=== PATIENT | female | born 1990 | race Caucasian/White ===

== ENCOUNTER 2017-11-16 23:35 | Emergency (ER) | payer OTHER ==
[~2017-11-16] VITALS: Ht 160 cm; Wt 65.4 kg
[~2017-11-16 23:35] MED LIST: Z.0.BCPILL PO
[2017-11-16 23:39] VITALS: BP 191/103; PULSE 82; RESP 18; TEMP 97.3; O2SAT 100
[2017-11-17 00:53] VITALS: BP 117/67
[2017-11-17] MEDS ORDERED: LORazepam 2 MG/ML VIAL IV PUSH ONE (01:00)
[2017-11-17] MEDS ORDERED: ONDANSETRON HCL 4 MG/2 ML VIAL IV PUSH ONE (01:00)
--- NOTE | 2017-11-17 01:08 | RADRPT ---
EXAM DATE/TIME: 11/17/2017 00:58 [place] COMPARISON: No previous studies available for comparison. INDICATIONS : Chest pain. MEDICAL HISTORY : None. SURGICAL HISTORY : None. ENCOUNTER: Initial ACUITY: 2 days PAIN SCORE: 0/10 LOCATION: Bilateral chest FINDINGS: A single view of the chest demonstrates the lungs to be symmetrically aerated without evidence of mas s, infiltrate or effusion. The cardiomediastinal contours are unremarkable. Osseous structures are intact. CONCLUSION: No acute disease. Yousuf Garcia MD on November 17, 2017 at 1:06 Board Certified Radiologist. This report was verified electronically.
--- NOTE | 2017-11-17 01:19 | PD ---
HPI Chief Complaint: Hypertension Time Seen by Provider: 00:54 Travel History International Travel<30 days: No Contact w/Intl Traveler<30days: No Traveled to known affect area: No History of Present Illness HPI 27-year-old female presents to the emergency department by private transportation for evaluation of anxiety and elevated blood pressure. 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 Patient states the past 3 days she has been very anxious has had increased stressors and has noted increased blood pressure. Today patient developed headache and nausea vomiting. Patient's no fall episodes of vomiting. Patient upon arrival to the emergency department noticed that her blood pressure is improving. Patient has been compliant with her antihypertensive. No blurred vision double vision loss of vision referred neck jaw back shoulder arm or abdominal pain no upper or lower extremity numbness tingling or weakness. Headache is mild to moderate not sudden onset not thunderclap and not worst ever. Patient has taken her blood pressure medication also takes Klonopin for anxiety but symptoms have persisted PFSH Past Medical History Narrative Medical Hypertension anxiety IUD; cholecystectomy; nursing notes reviewed Hypertension: Yes Seizures: Yes (one time ) Tetanus Vaccination: < 5 Years Influenza Vaccination: Yes ?: Not LMP: IUD : 0 Past Surgical History Cholecystectomy: Yes Social History Alcohol Use: Yes (OCCASIONAL) Tobacco Use: No Substance Use: No Allergies-Medications (Allergen,Severity, Reaction): Coded Allergies: No Known Allergies (Verified , 01/14/09) Reported Meds & Prescriptions Reported Meds & Active Scripts Active Reported Buspirone (Buspirone HCl) 15 Mg Tab 15 Mg PO BID Hydrochlorothiazide 12.5 Mg Tab 12.5 Mg PO DAILY Carvedilol 6.25 Mg Tab 6.25 Mg PO BID Oxcarbazepine 600 Mg Tab 600 Mg PO BID Klonopin (Clonazepam) 0.5 Mg Tab 0.5 Mg PO TID Review of Systems Except as stated in HPI: all other systems reviewed are Neg Physical Exam Narrative GENERAL: Well-developed well-nourished female no acute distress or respiratory distress SKIN: Warm and dry. HEAD: Normocephalic. EYES: No scleral icterus. No injection or drainage. NECK: Supple, trachea midline. No JVD or lymphadenopathy. CARDIOVASCULAR: Regular rate and rhythm without murmurs, gallops, or rubs. RESPIRATORY: Breath sounds equal bilaterally. No accessory muscle use. GASTROINTESTINAL: Abdomen soft, non-tender, nondistended. MUSCULOSKELETAL: No cyanosis, or edema. BACK: Nontender without obvious deformity. No CVA tenderness. Data Data Last Documented VS Vital Signs Date Time Temp Pulse Resp B/P (MAP) Pulse Ox O2 Delivery O2 Flow Rate FiO2 11/17/17 02:13 81 18 118/77 (91) 98 Room Air 11/16/17 23:39 97.3 Orders Orders Electrocardiogram (11/17/17 00:54) Basic Metabolic Panel (Bmp) (11/17/17 00:54) Ckmb (Isoenzyme) Profile (11/17/17 00:54) Complete Blood Count With Diff (11/17/17 00:54) Magnesium (Mg) (11/17/17 00:54) Prothrombin Time / Inr (Pt) (11/17/17 00:54) Act Partial Throm Time (Ptt) (11/17/17 00:54) Troponin I (11/17/17 00:54) Ecg Monitoring (11/17/17 00:54) Bilateral Bp Monitoring (11/17/17 00:54) Iv Access Insert/Monitor (11/17/17 00:54) Oximetry (11/17/17 00:54) Oxygen Administration (11/17/17 00:54) Lorazepam Inj (Ativan Inj) (11/17/17 01:00) Ed Urine Pregnancytest Poc (11/17/17 00:54) Chest, Single Ap (11/17/17 ) Ondansetron Inj (Zofran Inj) (11/17/17 01:00) Urinalysis - C+S If Indicated (11/17/17 00:54) Ed Discharge Order (11/17/17 02:09) Labs Laboratory Tests Test 11/17/17 01:00 White Blood Count 9.8 TH/MM3 Red Blood Count 4.76 MIL/MM3 Hemoglobin 14.2 GM/DL Hematocrit 41.3 % Mean Corpuscular Volume 86.9 FL Mean Corpuscular Hemoglobin 29.8 PG Mean Corpuscular Hemoglobin Concent 34.2 % Red Cell Distribution Width 11.0 % Platelet Count 253 TH/MM3 Mean Platelet Volume 7.2 FL Neutrophils (%) (Auto) 90.4 % Lymphocytes (%) (Auto) 4.0 % Monocytes (%) (Auto) 4.5 % Eosinophils (%) (Auto) 0.9 % Basophils (%) (Auto) 0.2 % Neutrophils # (Auto) 8.9 TH/MM3 Lymphocytes # (Auto) 0.4 TH/MM3 Monocytes # (Auto) 0.4 TH/MM3 Eosinophils # (Auto) 0.1 TH/MM3 Basophils # (Auto) 0.0 TH/MM3 CBC Comment DIFF FINAL Differential Comment Prothrombin Time 12.0 SEC Prothromb Time International Ratio 1.2 RATIO Activated Partial Thromboplast Time 34.2 SEC Urine Collection Type CLEAN CATCH Urine Color YELLOW Urine Turbidity CLEAR Urine pH 8.0 Urine Specific [place] 1.015 Urine Protein 30 mg/dL Urine Glucose (UA) NEG mg/dL Urine Ketones NEG mg/dL Urine Occult Blood NEG Urine Nitrite NEG Urine Bilirubin NEG Urine Urobilinogen 0.2 MG/DL Urine Leukocyte Esterase NEG Urine RBC 0-3 /hpf Urine WBC 0-2 /hpf Urine Squamous Epithelial Cells 0-5 /hpf Urine Bacteria OCC /hpf Urine Hyaline Casts 0-2 /lpf Urine Mucus OCC /lpf Microscopic Urinalysis Comment CULT NOT INDICATED Blood Urea Nitrogen 18 MG/DL Creatinine 0.86 MG/DL Random Glucose 88 MG/DL Calcium Level 8.7 MG/DL Magnesium Level 1.9 MG/DL Sodium Level 131 MEQ/L Potassium Level 3.4 MEQ/L Chloride Level 98 MEQ/L Carbon Dioxide Level 25.9 MEQ/L Anion Gap 7 MEQ/L Estimat Glomerular Filtration Rate 79 ML/MIN Total Creatine Kinase 59 U/L Troponin I LESS THAN 0.02 NG/ML MDM Medical Decision Making Medical Screen Exam Complete: Yes Emergency Medical Condition: Yes Medical Record Reviewed: Yes Interpretation(s) EKG normal sinus rhythm rate [address] elevation injury pattern or ectopy noted Vital Signs Date Time Temp Pulse Resp B/P (MAP) Pulse Ox O2 Delivery O2 Flow Rate FiO2 11/17/17 02:13 81 18 118/77 (91) 98 Room Air 11/17/17 01:43 80 18 132/83 (99) 98 Room Air 11/17/17 01:23 76 18 139/97 (111) 97 Room Air 141/90 (107) 11/16/17 23:39 97.3 82 18 191/103 (132) 100 Last Impressions Chest X-Ray 11/17/17 0000 Signed Impressions: Service Date/Time: Friday, November 17, 2017 00:58 - CONCLUSION: No acute disease. Yousuf Garcia MD CBC & BMP Diagram 11/17/17 01:00 Calcium Level 8.7, Magnesium Level 1.9 Differential Diagnosis Uncontrolled hypertension, hypertensive crisis, atypical chest pain, anxiety, electrolyte disturbance, , adverse medication reaction Narrative Course Patient placed on loop sewer IV access obtained specimens collected and sent for resulting: EKG shows sinus rhythm with no acute ST elevation injury pattern Multiple blood pressures were obtained and trended down to more acceptable range and additional medication was administered as patient complains of history of anxiety Ativan 0.5 mg IV was administered Lab values are found to be grossly within normal limits EKG showed no acute injury pattern Patient is deemed stable for outpatient management and further workup his primary care provider. Diagnosis Primary Impression: Hypertension Referrals: Primary Care Physician call for appointment Patient Instructions: General Instructions Departure Forms: Tests/Procedures, Work Release Special Instructions: No work 1 day Disposition: DISCHARGE HOME Condition: Stable María Elena Doherty MD Nov 17, 2017 01:19
[2017-11-17 01:23] VITALS: BP_SYST 139; BP_SYST 141; BP_DIAS 90; BP_DIAS 97; PULSE 76; RESP 18; O2SAT 97
[2017-11-17 01:27] LABS: AUTOMATED NEUTROPHIL # 8.9 TH/MM3 (1.8-7.7); BASOPHIL % 0.2 % (0.0-2.0); BILIRUBIN, URINE NEG (NEG); BLOOD, URINE NEG (NEG); EOSINOPHIL # 0.1 TH/MM3 (0-0.4); EOSINOPHIL % 0.9 % (0.0-4.0); GLUCOSE,URINE NEG (NEG); HEMATOCRIT 41.3 % (35.0-46.0); HEMOGLOBIN 14.2 GM/DL (11.6-15.3); KETONE, URINE NEG (NEG); LYMPHOCYTE # 0.4 TH/MM3 (1.0-4.8); MEAN CELL VOLUME 86.9 FL (80.0-100.0); MEAN CORPUSCULAR HEMOGLOBIN 29.8 PG (27.0-34.0); MEAN CORPUSCULAR HGB CONC 34.2 % (32.0-36.0); MEAN PLATELET VOLUME 7.2 FL (7.0-11.0); MONO % 4.5 % (0.0-8.0); MONOCYTE # 0.4 TH/MM3 (0-0.9); NEUT % 90.4 % (16.0-70.0); NITRITE,URINE NEG (NEG); PLATELET COUNT 253 TH/MM3 (150-450); RED BLOOD COUNT 4.76 MIL/MM3 (4.00-5.30); URINE COLOR YELLOW (YELLW/STRAW); URINE LEUKOCYTE ESTERASE NEG (NEG); WHITE BLOOD COUNT 9.8 TH/MM3 (4.0-11.0)
[2017-11-17] MEDS ORDERED: CARV6.252 PO (01:38)
[2017-11-17] MEDS ORDERED: OXCA600T PO (01:38)
[2017-11-17] MEDS ORDERED: BUSP15TA PO (01:38)
[2017-11-17] MEDS ORDERED: CLON.5 PO (01:38)
[2017-11-17] MEDS ORDERED: HYDR12.56 PO (01:38)
[2017-11-17 01:41] LABS: CHLORIDE 98 MEQ/L (98-107); SODIUM (NA) 131 MEQ/L (136-145)
[2017-11-17 01:43] VITALS: BP 132/83; PULSE 80; RESP 18; O2SAT 98
[2017-11-17 01:43] LABS: CALCIUM 8.7 MG/DL (8.5-10.1)
[2017-11-17 01:44] LABS: BICARBONATE 25.9 MEQ/L (21.0-32.0); BLOOD UREA NITROGEN 18 MG/DL (7-18); GLUCOSE,RANDOM 88 MG/DL (74-106); INTERNATIONAL NORMALIZED RATIO 1.2 RATIO; MAGNESIUM 1.9 MG/DL (1.5-2.5); SQUAMOUS EPITHELIAL CELL URINE 0-5 /hpf (0-5)
[2017-11-17 01:45] LABS: HYALINE CAST, URINE 0-2 /lpf (RARE); MUCUS URINE OCC /lpf (OCC)
[2017-11-17 01:47] LABS: BACTERIA, URINE OCC /hpf; CREATININE 0.86 MG/DL (0.50-1.00); GLOMERULAR FILTRATION RATE 79 ML/MIN (>89); WBC, URINE 0-2 /hpf (0-5)
[2017-11-17 01:48] LABS: RBC, URINE 0-3 /hpf (0-3)
[2017-11-17 01:52] LABS: TROPONIN I LESS THAN 0.02 NG/ML (0.02-0.05)
[2017-11-17 02:13] VITALS: BP 118/77; PULSE 81; RESP 18; O2SAT 98
--- NOTE | 2017-11-17 15:19 | EKG ---
Date Performed: 11/17/2017 Time Performed: 01:06:59 PTAGE: 27 years EKG: Sinus rhythm NORMAL ECG NO PREVIOUS TRACING DOCTOR: Coleman Monroy Interpretating Date/Time 11/17/2017 15:12:47
== END 2017-11-17 02:40 | disposition home or self-care (01) ==
LOC: PHED 23:35
DX: I10 Essential (primary) hypertension (principal); F41.9 Anxiety disorder, unspecified; R51 Headache; R11.2 Nausea with vomiting, unspecified; R56.9 Unspecified convulsions; Z79.899 Other long term (current) drug therapy
CPT/HCPCS: 71045; 80048; 81001; 82550; 83735; 84484; 84703; 85025; 85610; 85730; 93005; 96374; 96375; 99285; J2060; J2405